=== PATIENT | male | born 1965 | race Caucasian/White ===

== ENCOUNTER → 2019-11-19 | Outpatient (CLI) | payer BC | END | disposition home or self-care (01) | LOC: COVID19 00:20 | DX: Z20.828 Contact with and (suspected) exposure to other viral communicable diseases (principal) ==

== ENCOUNTER → 2020-02-02 | Outpatient (CLI) | payer BC | END | disposition home or self-care (01) | LOC: US 11:24 | PROVIDERS: ATTEND Family Medicine | DX: M79.89 Other specified soft tissue disorders (principal) ==